=== PATIENT | male | born 1940 | race African-American/Black ===

== ENCOUNTER 2022-05-17 09:52 | Inpatient (IN) | payer OTHER ==
[2022-05-17 10:11] VITALS: BMI 21.4
[2022-05-17] MEDS ORDERED: SODIUM CHLORIDE 0.9% 500 ML INFUS.BAG IV ONE (10:19)
[2022-05-17 11:03] LABS: BASO % 0.6 % (0-2.0); EOS % 0.2 % (0-4.5); HEMATOCRIT 38.7 % (35.4-49); HEMOGLOBIN 12.9 GM/dL (11.7-16.9); LYMPH % 21.3 % (8-40); MCH 30.5 pg (25.7-33.7); MCHC 33.4 g/dl (32.0-35.9); MEAN CELL VOLUME 91.4 fl (80-96); MEAN PLT VOLUME 7.9 fl (7.5-11.1); MONO % 11.5 % (3.8-10.2); NEUT % 66.4 % (42.8-82.8); PLATELET COUNT 313 10^3/uL (134-434); RBC 4.23 M/mm3 (4.00-5.60); RDW 12.6 % (11.9-15.9); WHITE BLOOD COUNT 3.1 K/mm3 (4.0-10.0)
[2022-05-17] MEDS ORDERED: ATORVASTATIN CA 80 MG TABLET (FP) PO ONE (11:10)
[2022-05-17] MEDS ORDERED: ASPIRIN 81 MG CHEWABLE TABLETS PO ONE (11:10)
[2022-05-17] MEDS ORDERED: ATORVASTATIN CA 80 MG TABLET (FP) ONE (11:17)
[2022-05-17] MEDS ORDERED: ASPIRIN 81 MG CHEWABLE TABLETS ONE (11:18)
[2022-05-17 11:19] LABS: CHLORIDE 104 mmol/L (98-107); SODIUM 134 mmol/L (136-145)
[2022-05-17 11:22] LABS: GLUCOSE,RANDOM 66 mg/dL (74-106)
[2022-05-17 11:23] LABS: ALBUMIN 3.2 g/dl (3.4-5.0); BLOOD UREA NITROGEN 19.8 mg/dL (7-18); CALCIUM 9.1 mg/dL (8.5-10.1); CO2 23 mmol/L (21-32); MAGNESIUM 2.2 mg/dL (1.8-2.4)
[2022-05-17 11:26] LABS: CREATININE 1.1 mg/dL (0.55-1.3)
[2022-05-17 11:28] LABS: ALK PHOS 63 U/L (45-117); BILIRUBIN,TOTAL 0.7 mg/dL (0.2-1); TOT PROT 7.7 g/dl (6.4-8.2)
[2022-05-17 11:39] LABS: ANION GAP 6 MMOL/L (8-16); SGOT/AST 175 U/L (15-37); SGPT/ALT 30 U/L (13-61)
[2022-05-17] MEDS ORDERED: ACETAMINOPHEN 325 MG TABLET (FP) PO ONE (11:39)
[2022-05-17] MEDS ORDERED: ACETAMINOPHEN 325 MG TABLET (FP) ONE (11:41)
[2022-05-17] MEDS ORDERED: DEXTROSE 5%-WATER - 1,000 ML IV SCH (12:00)
[2022-05-17] MEDS: DEXTROSE 5%-WATER - 1,000 ML IV SCH ×2 (12:56→20:00)
[2022-05-17 13:12] LABS: BLOOD UREA NITROGEN 17.7 mg/dL (7-18); CALCIUM 8.6 mg/dL (8.5-10.1)
[2022-05-17 13:38] LABS: PH,URINE 5.5 (5.0-8.0); URINE APPEARANCE CLEAR; URINE BILIRUBIN NEGATIVE (NEGATIVE); URINE COLOR YELLOW; URINE GLUCOSE (UA) NEGATIVE (NEGATIVE); URINE KETONE 3+ (NEGATIVE); URINE LEUK ESTERASE NEGATIVE (NEGATIVE); URINE NITRITE NEGATIVE (NEGATIVE); URINE PROTEIN TRACE (NEGATIVE); URINE UROBILINOGEN 0.2 mg/dL (0.2-1.0)
[2022-05-17] MEDS ORDERED: ACETAMINOPHEN 1000 MG/100 ML BAG IVPB PRN (17:00)
[2022-05-17 19:50] LABS: MAGNESIUM 1.8 mg/dL (1.8-2.4)
[2022-05-17 19:53] LABS: PHOSPHOROUS 2.8 mg/dL (2.5-4.9)
[2022-05-17 19:57] LABS: N-TERMINAL BNP 72.7 pg/ml (5-450)
[2022-05-17] MEDS: ATORVASTATIN CA 10 MG TABLET (FP) PO SCH (21:27)
[2022-05-18 08:37] LABS: BASO % 0.7 % (0-2.0); HEMATOCRIT 35.8 % (35.4-49); HEMOGLOBIN 12.4 GM/dL (11.7-16.9); LYMPH % 56.2 % (8-40); MCH 31.2 pg (25.7-33.7); MCHC 34.5 g/dl (32.0-35.9); MEAN CELL VOLUME 90.5 fl (80-96); MEAN PLT VOLUME 7.6 fl (7.5-11.1); MONO % 14.6 % (3.8-10.2); NEUT % 26.5 % (42.8-82.8); PLATELET COUNT 304 10^3/uL (134-434); RBC 3.96 M/mm3 (4.00-5.60)
[2022-05-18 08:55] LABS: ALBUMIN 3.2 g/dl (3.4-5.0); BLOOD UREA NITROGEN 7.6 mg/dL (7-18); CALCIUM 8.3 mg/dL (8.5-10.1)
[2022-05-18 08:59] LABS: CREATININE 0.8 mg/dL (0.55-1.3)
[2022-05-18 09:01] LABS: BILIRUBIN,TOTAL 0.6 mg/dL (0.2-1); TOT PROT 6.6 g/dl (6.4-8.2)
[2022-05-18] MEDS: ENOXAPARIN NA (PORCINE) 40 MG/0.4 ML DISP.SYRIN SQ SCH (09:58)
[2022-05-18] MEDS: BICTEGRAV/EMTRICIT/TENOFOV (BIKTARVY) 50-200-25 MG TABLET PO SCH (18:27)
[2022-05-18] MEDS: DEXTROSE 5%-WATER - 1,000 ML IV SCH ×2 (18:30→20:36)
[2022-05-18] MEDS ORDERED: ACETAMINOPHEN 1000 MG/100 ML BAG IVPB PRN (20:30)
[2022-05-18] MEDS: BENZOCAINE/MENTH/CETYLPYRD CL 1 EACH LOZENGE MM PRN (20:36)
[2022-05-18] MEDS: ATORVASTATIN CA 10 MG TABLET (FP) PO SCH (21:42)
[2022-05-18 22:53] LABS: PH,URINE 7.5 (5.0-8.0); URINE APPEARANCE CLEAR; URINE BILIRUBIN NEGATIVE (NEGATIVE); URINE COLOR YELLOW; URINE GLUCOSE (UA) NEGATIVE (NEGATIVE); URINE KETONE NEGATIVE (NEGATIVE); URINE LEUK ESTERASE NEGATIVE (NEGATIVE); URINE NITRITE NEGATIVE (NEGATIVE); URINE PROTEIN NEGATIVE (NEGATIVE); URINE UROBILINOGEN 0.2 mg/dL (0.2-1.0)
[2022-05-19] MEDS: DEXTROSE 5%-WATER - 1,000 ML IV SCH ×2 (04:57→12:38)
[2022-05-19 08:41] LABS: BASO % 0.6 % (0-2.0); HEMATOCRIT 36.9 % (35.4-49); HEMOGLOBIN 13.1 GM/dL (11.7-16.9); LYMPH % 32.9 % (8-40); MCH 32.1 pg (25.7-33.7); MCHC 35.5 g/dl (32.0-35.9); MEAN CELL VOLUME 90.3 fl (80-96); MEAN PLT VOLUME 7.8 fl (7.5-11.1); MONO % 12.4 % (3.8-10.2); NEUT % 51.1 % (42.8-82.8); PLATELET COUNT 321 10^3/uL (134-434); RBC 4.09 M/mm3 (4.00-5.60); RDW 12.3 % (11.9-15.9)
[2022-05-19 08:58] LABS: BLOOD UREA NITROGEN 4.4 mg/dL (7-18); CALCIUM 8.8 mg/dL (8.5-10.1)
[2022-05-19 08:59] LABS: ALBUMIN 3.2 g/dl (3.4-5.0)
[2022-05-19 09:00] LABS: CREATININE 0.9 mg/dL (0.55-1.3)
[2022-05-19 09:01] LABS: BILIRUBIN,TOTAL 0.7 mg/dL (0.2-1); TOT PROT 6.8 g/dl (6.4-8.2)
[2022-05-19] MEDS: BICTEGRAV/EMTRICIT/TENOFOV (BIKTARVY) 50-200-25 MG TABLET PO SCH (09:35)
[2022-05-19] MEDS: ENOXAPARIN NA (PORCINE) 40 MG/0.4 ML DISP.SYRIN SQ SCH (09:35)
[2022-05-19] MEDS ORDERED: REMDESIVIR 200 MG in SODIUM CHLORIDE 250 ML IVPB ONE (13:00)
[2022-05-19] MEDS: ATORVASTATIN CA 10 MG TABLET (FP) PO SCH (21:09)
[2022-05-19] MEDS ORDERED: ACETAMINOPHEN 1000 MG/100 ML BAG IVPB PRN (21:55)
[2022-05-19] MEDS: BENZOCAINE/MENTH/CETYLPYRD CL 1 EACH LOZENGE MM PRN (22:18)
[2022-05-20] MEDS: ENOXAPARIN NA (PORCINE) 40 MG/0.4 ML DISP.SYRIN SQ SCH (10:31)
[2022-05-20] MEDS: BICTEGRAV/EMTRICIT/TENOFOV (BIKTARVY) 50-200-25 MG TABLET PO SCH (10:32)
[2022-05-20] MEDS: REMDESIVIR 100 MG in SODIUM CHLORIDE 250 ML IVPB SCH (17:24)
[2022-05-20] MEDS: ATORVASTATIN CA 10 MG TABLET (FP) PO SCH (22:01)
[2022-05-20] MEDS: BENZOCAINE/MENTH/CETYLPYRD CL 1 EACH LOZENGE MM PRN (22:02)
[2022-05-21] MEDS: REMDESIVIR 100 MG in SODIUM CHLORIDE 250 ML IVPB SCH (10:25)
[2022-05-21] MEDS: ENOXAPARIN NA (PORCINE) 40 MG/0.4 ML DISP.SYRIN SQ SCH (10:25)
[2022-05-21] MEDS: BICTEGRAV/EMTRICIT/TENOFOV (BIKTARVY) 50-200-25 MG TABLET PO SCH (10:25)
[2022-05-21] MEDS ORDERED: FOLIC ACID INJECTION - 1 MG, THIAMINE HCL 100 MG, MULTIVIT INJECTION ADULT 10 ML in SOD... IVPB ONE (12:26)
[2022-05-21] MEDS: BENZOCAINE/MENTH/CETYLPYRD CL 1 EACH LOZENGE MM PRN (21:59)
[2022-05-21] MEDS: ATORVASTATIN CA 10 MG TABLET (FP) PO SCH (21:59)
[2022-05-22 09:21] LABS: BASO % 0.5 % (0-2.0); EOS % 2.3 % (0-4.5); HEMATOCRIT 36.6 % (35.4-49); HEMOGLOBIN 12.3 GM/dL (11.7-16.9); LYMPH % 22.4 % (8-40); MCH 30.2 pg (25.7-33.7); MCHC 33.6 g/dl (32.0-35.9); MONO % 10.4 % (3.8-10.2); NEUT % 64.4 % (42.8-82.8); PLATELET COUNT 375 10^3/uL (134-434); RBC 4.07 M/mm3 (4.00-5.60); RDW 12.1 % (11.9-15.9); WHITE BLOOD COUNT 4.8 K/mm3 (4.0-10.0)
[2022-05-22 09:46] LABS: ALBUMIN 3.1 g/dl (3.4-5.0); BLOOD UREA NITROGEN 11.3 mg/dL (7-18)
[2022-05-22 09:50] LABS: BILIRUBIN,TOTAL 0.5 mg/dL (0.2-1); TOT PROT 6.3 g/dl (6.4-8.2)
[2022-05-22] MEDS: REMDESIVIR 100 MG in SODIUM CHLORIDE 250 ML IVPB SCH (10:55)
[2022-05-22] MEDS: ENOXAPARIN NA (PORCINE) 40 MG/0.4 ML DISP.SYRIN SQ SCH (10:55)
[2022-05-22] MEDS: BICTEGRAV/EMTRICIT/TENOFOV (BIKTARVY) 50-200-25 MG TABLET PO SCH (10:56)
[2022-05-22] MEDS: DRONABINOL 5 MG CAPSULE PO SCH (16:21)
[2022-05-22] MEDS: BENZOCAINE/MENTH/CETYLPYRD CL 1 EACH LOZENGE MM PRN (17:39)
[2022-05-22] MEDS: ATORVASTATIN CA 10 MG TABLET (FP) PO SCH (20:59)
[2022-05-23] MEDS: ENOXAPARIN NA (PORCINE) 40 MG/0.4 ML DISP.SYRIN SQ SCH (10:22)
[2022-05-23] MEDS: DRONABINOL 5 MG CAPSULE PO SCH (10:23)
[2022-05-23] MEDS: BICTEGRAV/EMTRICIT/TENOFOV (BIKTARVY) 50-200-25 MG TABLET PO SCH (10:23)
[2022-05-23] MEDS: REMDESIVIR 100 MG in SODIUM CHLORIDE 250 ML IVPB SCH (10:24)
[2022-05-23] MEDS: ATORVASTATIN CA 10 MG TABLET (FP) PO SCH (21:02)
[2022-05-23] MEDS: BENZOCAINE/MENTH/CETYLPYRD CL 1 EACH LOZENGE MM PRN (21:03)
[2022-05-24] MEDS: DRONABINOL 5 MG CAPSULE PO SCH (09:46)
[2022-05-24] MEDS: BICTEGRAV/EMTRICIT/TENOFOV (BIKTARVY) 50-200-25 MG TABLET PO SCH (09:47)
[2022-05-24] MEDS: ENOXAPARIN NA (PORCINE) 40 MG/0.4 ML DISP.SYRIN SQ SCH (09:47)
[2022-05-24] MEDS: ATORVASTATIN CA 10 MG TABLET (FP) PO SCH (21:11)
[2022-05-25] MEDS: DRONABINOL 5 MG CAPSULE PO SCH (09:52)
[2022-05-25] MEDS: BICTEGRAV/EMTRICIT/TENOFOV (BIKTARVY) 50-200-25 MG TABLET PO SCH (09:53)
[2022-05-25] MEDS: ENOXAPARIN NA (PORCINE) 40 MG/0.4 ML DISP.SYRIN SQ SCH (10:10)
[2022-05-25] MEDS: ATORVASTATIN CA 10 MG TABLET (FP) PO SCH (21:40)
[2022-05-26] MEDS: DRONABINOL 5 MG CAPSULE PO SCH (09:40)
[2022-05-26] MEDS: BICTEGRAV/EMTRICIT/TENOFOV (BIKTARVY) 50-200-25 MG TABLET PO SCH (09:41)
[2022-05-26] MEDS: ENOXAPARIN NA (PORCINE) 40 MG/0.4 ML DISP.SYRIN SQ SCH (09:41)
[2022-05-26 10:01] VITALS: RESP 18
[2022-05-26] MEDS: ATORVASTATIN CA 10 MG TABLET (FP) PO SCH (21:02)
[2022-05-26] MEDS: BENZOCAINE/MENTH/CETYLPYRD CL 1 EACH LOZENGE MM PRN (21:02)
[2022-05-27] MEDS: DRONABINOL 5 MG CAPSULE PO SCH (11:04)
[2022-05-27] MEDS: ENOXAPARIN NA (PORCINE) 40 MG/0.4 ML DISP.SYRIN SQ SCH (11:04)
[2022-05-27] MEDS: BICTEGRAV/EMTRICIT/TENOFOV (BIKTARVY) 50-200-25 MG TABLET PO SCH (11:05)
[2022-05-27 12:40] VITALS: BP 121/76; PULSE 87; TEMP 97.6
== END 2022-05-27 13:38 | disposition home or self-care (01) | DRG 976 ==
LOC: JER 09:52 → JERBED 12:03 → OBSVTOIN 16:21 → J4S 19:54
PROVIDERS: ADMIT Internal Medicine; ATTEND Internal Medicine
PROC: XW033E5 Introduction of Remdesivir Anti-infective into Peripheral Vein, Percutaneous Approach, New Technology Group 5 (ICD-10-PCS; principal; 2022-05-19)
DX: U07.1 COVID-19 (principal); B20 Human immunodeficiency virus [HIV] disease; J12.82 Pneumonia due to coronavirus disease 2019; I10 Essential (primary) hypertension; E78.5 Hyperlipidemia, unspecified; N40.0 Benign prostatic hyperplasia without lower urinary tract symptoms; R62.7 Adult failure to thrive; Z68.21 Body mass index [BMI] 21.0-21.9, adult; E16.2 Hypoglycemia, unspecified; R53.1 Weakness; R53.81 Other malaise; D70.9 Neutropenia, unspecified
CPT/HCPCS: 0241U-QW; 36415; 70450-TC; 71045-TC-FY; 80048; 80053; 81003; 82962; 83735; 83880; 84100; 84439; 84443; 84484; 85025; 86359; 86360; 87086; 93005; 93010; 93880-TC; 97116-GP; 97161-GP; 99285-25; C9399; G0378

== ENCOUNTER 2022-06-03 13:32 | Emergency (ER) | payer OTHER ==
[2022-06-03] MEDS ORDERED: SODIUM CHLORIDE 0.9% 500 ML INFUS.BAG IV ONE (14:29)
[2022-06-03] MEDS ORDERED: MECLIZINE HCL 25 MG TABLET (FP) PO ONE (14:49)
[2022-06-03] MEDS ORDERED: MECLIZINE HCL 25 MG TABLET (FP) ONE (15:25)
[2022-06-03 15:34] VITALS: BP 132/56; PULSE 65; RESP 20; TEMP 98.2
[2022-06-03 16:26] LABS: BASO % 0.6 % (0-2.0); EOS % 3.7 % (0-4.5); HEMATOCRIT 36.4 % (35.4-49); HEMOGLOBIN 12.2 GM/dL (11.7-16.9); MCH 30.8 pg (25.7-33.7); MCHC 33.6 g/dl (32.0-35.9); MEAN CELL VOLUME 91.5 fl (80-96); MEAN PLT VOLUME 8.4 fl (7.5-11.1); MONO % 10.7 % (3.8-10.2); PLATELET COUNT 400 10^3/uL (134-434); RBC 3.98 M/mm3 (4.00-5.60); RDW 12.8 % (11.9-15.9); WHITE BLOOD COUNT 3.9 K/mm3 (4.0-10.0)
[2022-06-03 16:27] LABS: EPI CELLS 3 /uL (0-25.1); HYALINE CASTS 1 /uL (0-3.1); URINE APPEARANCE CLEAR; URINE BACTERIA 3 /uL (0-1359); URINE BILIRUBIN NEGATIVE (NEGATIVE); URINE COLOR YELLOW; URINE GLUCOSE (UA) NEGATIVE (NEGATIVE); URINE KETONE TRACE (NEGATIVE); URINE LEUK ESTERASE TRACE (NEGATIVE); URINE NITRITE NEGATIVE (NEGATIVE); URINE PROTEIN NEGATIVE (NEGATIVE); URINE RBC 6 /uL (0-23.9); URINE UROBILINOGEN 0.2 mg/dL (0.2-1.0); URINE WBC 35 /uL (0-25.8)
[2022-06-03 16:49] LABS: CALCIUM 9.7 mg/dL (8.5-10.1)
[2022-06-03 16:50] LABS: ALBUMIN 3.7 g/dl (3.4-5.0); BLOOD UREA NITROGEN 16.5 mg/dL (7-18); MAGNESIUM 2.3 mg/dL (1.8-2.4)
[2022-06-03 16:53] LABS: CREATININE 1.3 mg/dL (0.55-1.3)
[2022-06-03 16:54] LABS: BILIRUBIN,TOTAL 0.4 mg/dL (0.2-1); TOT PROT 7.3 g/dl (6.4-8.2)
== END 2022-06-03 17:15 | disposition home or self-care (01) ==
LOC: JER 13:32
DX: R42 Dizziness and giddiness (principal)
CPT/HCPCS: 0241U-QW; 36415; 71045-TC-FY; 80053; 81003; 83735; 84484; 85025; 87086; 87186; 93005; 93010; 99285-25

== ENCOUNTER 2023-06-09 15:19 | Observation (INO) | payer OTHER ==
[2023-06-09] MEDS ORDERED: SODIUM CHLORIDE 0.9% 1000 ML INFUS.BAG IV ONE (17:19)
[2023-06-09 17:58] LABS: BASO % 0.7 % (0-2.0); EOS % 1.3 % (0-4.5); HEMATOCRIT 37.3 % (35.4-49); HEMOGLOBIN 12.5 GM/dL (11.7-16.9); LYMPH % 31.8 % (8-40); MCH 31.1 pg (25.7-33.7); MCHC 33.5 g/dl (32.0-35.9); MEAN CELL VOLUME 92.9 fl (80-96); MEAN PLT VOLUME 8.1 fl (7.5-11.1); MONO % 8.7 % (3.8-10.2); NEUT % 57.5 % (42.8-82.8); PLATELET COUNT 344 10^3/uL (134-434); RBC 4.01 M/mm3 (4.00-5.60); RDW 13.1 % (11.9-15.9); WHITE BLOOD COUNT 4.5 K/mm3 (4.0-10.0)
[2023-06-09 18:11] LABS: POTASSIUM 4.5 mmol/L (3.5-5.1)
[2023-06-09 18:13] LABS: CALCIUM 9.4 mg/dL (8.5-10.1)
[2023-06-09 18:14] LABS: ALBUMIN 3.6 g/dl (3.4-5.0); BLOOD UREA NITROGEN 20.2 mg/dL (7-18)
[2023-06-09 18:17] LABS: CREATININE 1.3 mg/dL (0.55-1.3)
[2023-06-09 18:18] LABS: BILIRUBIN,TOTAL 0.4 mg/dL (0.2-1)
[2023-06-09 18:19] LABS: TOT PROT 7.3 g/dl (6.4-8.2)
[2023-06-09 19:46] LABS: PH,URINE 7.5 (5.0-8.0); URINE APPEARANCE CLEAR; URINE BILIRUBIN NEGATIVE (NEGATIVE); URINE COLOR YELLOW; URINE GLUCOSE (UA) NEGATIVE (NEGATIVE); URINE KETONE NEGATIVE (NEGATIVE); URINE LEUK ESTERASE NEGATIVE (NEGATIVE); URINE NITRITE NEGATIVE (NEGATIVE); URINE PROTEIN NEGATIVE (NEGATIVE)
[2023-06-09] MEDS ORDERED: METOCLOPRAMIDE HCL INJECTION 10 MG/2 ML VIAL IVPUSH ONE (20:54)
[2023-06-09] MEDS ORDERED: ACETAMINOPHEN 1000 MG/100 ML BAG IVPB ONE (20:54)
[2023-06-09] MEDS ORDERED: ACETAMINOPHEN INJECTION 100 ML IVPB ONE (21:24)
[2023-06-09] MEDS ORDERED: METOCLOPRAMIDE HCL INJECTION 10 MG/2 ML VIAL ONE (21:24)
[2023-06-10] MEDS ORDERED: SODIUM CHLORIDE 1,000 ML IV SCH (00:15)
[2023-06-10] MEDS: SODIUM CHLORIDE 1,000 ML IV SCH (03:34)
[2023-06-10] MEDS: BICTEGRAV/EMTRICIT/TENOFOV (BIKTARVY) 50-200-25 MG TABLET PO SCH (08:35)
[2023-06-10 09:31] LABS: HEMATOCRIT 36.8 % (35.4-49); HEMOGLOBIN 12.2 GM/dL (11.7-16.9); MEAN PLT VOLUME 7.9 fl (7.5-11.1); PLATELET COUNT 298 10^3/uL (134-434); RBC 3.92 M/mm3 (4.00-5.60); RDW 12.6 % (11.9-15.9); WHITE BLOOD COUNT 3.6 K/mm3 (4.0-10.0)
[2023-06-10 09:59] LABS: POTASSIUM 5.3 mmol/L (3.5-5.1)
[2023-06-10 10:01] LABS: CALCIUM 8.5 mg/dL (8.5-10.1)
[2023-06-10 10:02] LABS: ALBUMIN 3.1 g/dl (3.4-5.0)
[2023-06-10 10:06] LABS: TOT PROT 6.6 g/dl (6.4-8.2)
[2023-06-10 10:07] LABS: BILIRUBIN,TOTAL 0.6 mg/dL (0.2-1); CREATININE 0.9 mg/dL (0.55-1.3); PHOSPHOROUS 2.5 mg/dL (2.5-4.9)
[2023-06-10] MEDS ORDERED: MECLIZINE HCL 12.5 MG TABLET PO ONE (21:10)
[2023-06-10] MEDS ORDERED: METOCLOPRAMIDE HCL INJECTION 10 MG/2 ML VIAL IVPUSH ONE (21:10)
[2023-06-10] MEDS ORDERED: ATORVASTATIN CA 20 MG TABLET (FP) ONE (21:24)
[2023-06-10] MEDS ORDERED: MECLIZINE HCL 12.5 MG TABLET ONE (21:24)
[2023-06-10] MEDS ORDERED: METOCLOPRAMIDE HCL INJECTION 10 MG/2 ML VIAL ONE (21:24)
[2023-06-10] MEDS ORDERED: ATORVASTATIN CA 10 MG TABLET (FP) PO SCH (22:00)
[2023-06-11] MEDS: SODIUM CHLORIDE 1,000 ML IV SCH (03:01)
[2023-06-11 04:32] VITALS: BMI 21.9
[2023-06-11] MEDS: BICTEGRAV/EMTRICIT/TENOFOV (BIKTARVY) 50-200-25 MG TABLET PO SCH (09:45)
[2023-06-11 10:49] LABS: EPI CELLS 31 /uL (0-25.1); HYALINE CASTS 0 /uL (0-3.1); URINE APPEARANCE CLEAR; URINE BACTERIA 894 /uL (0-1359); URINE BILIRUBIN NEGATIVE (NEGATIVE); URINE COLOR YELLOW; URINE GLUCOSE (UA) NEGATIVE (NEGATIVE); URINE KETONE NEGATIVE (NEGATIVE); URINE LEUK ESTERASE 1+ (NEGATIVE); URINE NITRITE NEGATIVE (NEGATIVE); URINE PROTEIN NEGATIVE (NEGATIVE); URINE RBC 14 /uL (0-23.9); URINE UROBILINOGEN 0.2 mg/dL (0.2-1.0); URINE WBC 27 /uL (0-25.8)
[2023-06-11 14:44] VITALS: BP 129/72; PULSE 78; RESP 17; TEMP 98.5
[2023-06-11] MEDS ORDERED: POLYETHYLENE GLYCOL (HEALTHYLAX) 3350 17 GM PACKET PO ONE (15:15)
[2023-06-11 15:29] LABS: POTASSIUM 3.8 mmol/L (3.5-5.1)
[2023-06-11 15:31] LABS: CALCIUM 9.2 mg/dL (8.5-10.1)
[2023-06-11 15:32] LABS: BLOOD UREA NITROGEN 14.1 mg/dL (7-18)
[2023-06-11 15:35] LABS: CREATININE 1.2 mg/dL (0.55-1.3)
== END 2023-06-11 17:17 | disposition home or self-care (01) ==
LOC: JER 15:19 → JERBED 20:42 → J4W 06-11 04:52
PROVIDERS: ADMIT Internal Medicine; ATTEND Internal Medicine
PROC: 3E033NZ Introduction of Analgesics, Hypnotics, Sedatives into Peripheral Vein, Percutaneous Approach (ICD-10-PCS; principal; 2023-06-09)
PROC: 3E033GC Introduction of Other Therapeutic Substance into Peripheral Vein, Percutaneous Approach (ICD-10-PCS; 2023-06-09)
PROC: 3E0337Z Introduction of Electrolytic and Water Balance Substance into Peripheral Vein, Percutaneous Approach (ICD-10-PCS; 2023-06-09)
DX: J06.9 Acute upper respiratory infection, unspecified (principal); B34.9 Viral infection, unspecified; E86.0 Dehydration; N40.0 Benign prostatic hyperplasia without lower urinary tract symptoms; Z29.89 Encounter for other specified prophylactic measures; R42 Dizziness and giddiness; R51.9 Headache, unspecified; B20 Human immunodeficiency virus [HIV] disease
CPT/HCPCS: 0241U-QW; 36415; 70450-TC; 80048; 80053; 81003; 82962; 83605; 83735; 84100; 84484; 85025; 85027; 87086; 93005; 93010; 93306-TC; 93880-TC; 96361; 96374; 96375; 96376; 97116-GP; 97162-GP; 99285-25; G0378

== ENCOUNTER 2024-02-16 12:35 | Inpatient (IN) | payer OTHER ==
[2024-02-16 14:24] LABS: BASO % 0.8 % (0-2.0); EOS % 0.9 % (0-4.5); HEMATOCRIT 35.7 % (35.4-49); HEMOGLOBIN 12.6 GM/dL (11.7-16.9); LYMPH % 26.6 % (8-40); MCH 32.5 pg (25.7-33.7); MCHC 35.2 g/dl (32.0-35.9); MEAN CELL VOLUME 92.2 fl (80-96); MEAN PLT VOLUME 7.2 fl (7.5-11.1); MONO % 7.7 % (3.8-10.2); PLATELET COUNT 290 10^3/uL (134-434); RBC 3.88 M/mm3 (4.00-5.60); RDW 12.7 % (11.9-15.9); WHITE BLOOD COUNT 3.9 K/mm3 (4.0-10.0)
[2024-02-16 14:27] LABS: INR 1.02 (0.83-1.09); PROTHROMBIN TIME (PATIENT) 11.5 SEC (9.7-13.0)
[2024-02-16 14:30] LABS: ACTIVATED PTT 30.7 SECONDS (25.2-36.5)
[2024-02-16 14:40] LABS: POTASSIUM 3.9 mmol/L (3.5-5.1)
[2024-02-16 14:42] LABS: BLOOD UREA NITROGEN 14.3 mg/dL (7-18); CALCIUM 9.4 mg/dL (8.5-10.1)
[2024-02-16 14:43] LABS: ALBUMIN 3.5 g/dl (3.4-5.0)
[2024-02-16 14:45] LABS: CREATININE 1.2 mg/dL (0.55-1.3)
[2024-02-16 14:47] LABS: BILIRUBIN,TOTAL 0.7 mg/dL (0.2-1); TOT PROT 7.1 g/dl (6.4-8.2)
[2024-02-16] MEDS: ACETAMINOPHEN 1000 MG/100 ML BAG IVPB ONE (15:34)
[2024-02-16] MEDS ORDERED: HEPARIN NA (PORCINE) 5,000 UNITS/ML 1ML VIAL ONE (20:41)
[2024-02-16] MEDS ORDERED: amLODIPine BESYLATE 5 MG TABLET (FP) ONE (20:41)
[2024-02-16] MEDS ORDERED: ATORVASTATIN CA 10 MG TABLET (FP) ONE (20:41)
[2024-02-16] MEDS: SODIUM CHLORIDE 1,000 ML IV SCH (21:15)
[2024-02-16] MEDS: HEPARIN NA (PORCINE) 5,000 UNITS/ML 1ML VIAL SQ SCH (21:24)
[2024-02-16] MEDS: ATORVASTATIN CA 10 MG TABLET (FP) PO SCH (21:25)
[2024-02-16] MEDS: amLODIPine BESYLATE 5 MG TABLET (FP) PO SCH (21:25)
[2024-02-16] MEDS: PANTOPRAZOLE 40 MG TABLET PO SCH (22:16)
[2024-02-16] MEDS: D5-1/2NS+10 MEQ KCL - 10 MEQ/1,000 ML INFUS.BAG IV SCH (22:25)
[2024-02-17 07:04] LABS: HEMATOCRIT 36.7 % (35.4-49); HEMOGLOBIN 12.6 GM/dL (11.7-16.9); MCH 32.1 pg (25.7-33.7); MCHC 34.2 g/dl (32.0-35.9); MEAN CELL VOLUME 93.8 fl (80-96); MEAN PLT VOLUME 7.8 fl (7.5-11.1); PLATELET COUNT 310 10^3/uL (134-434); RBC 3.91 M/mm3 (4.00-5.60); RDW 12.7 % (11.9-15.9); WHITE BLOOD COUNT 4.6 K/mm3 (4.0-10.0)
[2024-02-17 07:12] LABS: POTASSIUM 4.1 mmol/L (3.5-5.1)
[2024-02-17 07:18] LABS: ALBUMIN 3.6 g/dl (3.4-5.0); BLOOD UREA NITROGEN 14.3 mg/dL (7-18); CALCIUM 9.2 mg/dL (8.5-10.1)
[2024-02-17 07:21] LABS: CREATININE 1.2 mg/dL (0.55-1.3); PHOSPHOROUS 2.5 mg/dL (2.5-4.9)
[2024-02-17 07:23] LABS: BILIRUBIN,TOTAL 0.7 mg/dL (0.2-1)
[2024-02-17] MEDS: D5-1/2NS+10 MEQ KCL - 10 MEQ/1,000 ML INFUS.BAG IV SCH (08:54)
[2024-02-17] MEDS: TAMSULOSIN HCL 0.4 MG CAP PO SCH (08:54)
[2024-02-17] MEDS ORDERED: TAMSULOSIN HCL 0.4 MG CAP ONE (09:03)
[2024-02-17] MEDS: BICTEGRAV/EMTRICIT/TENOFOV (BIKTARVY) 50-200-25 MG TABLET PO SCH (10:53)
[2024-02-17 18:21] VITALS: BMI 20.7
[2024-02-17] MEDS: ACETAMINOPHEN 325 MG TABLET (FP) PO PRN (19:12)
[2024-02-18] MEDS: HALOPERIDOL LACTATE 5 MG/ML IM ONE (00:02)
[2024-02-18] MEDS: D5-1/2NS+10 MEQ KCL - 10 MEQ/1,000 ML INFUS.BAG IV SCH (11:37)
[2024-02-18 12:45] LABS: BASO % 0.5 % (0-2.0); EOS % 1.5 % (0-4.5); HEMATOCRIT 39.8 % (35.4-49); HEMOGLOBIN 13.5 GM/dL (11.7-16.9); LYMPH % 23.8 % (8-40); MCH 31.5 pg (25.7-33.7); MEAN CELL VOLUME 92.7 fl (80-96); MONO % 7.5 % (3.8-10.2); NEUT % 66.7 % (42.8-82.8); PLATELET COUNT 323 10^3/uL (134-434); RBC 4.29 M/mm3 (4.00-5.60); RDW 13.4 % (11.9-15.9)
[2024-02-18 13:03] LABS: POTASSIUM 4.1 mmol/L (3.5-5.1)
[2024-02-18 13:05] LABS: POTASSIUM 4.1 mmol/L (3.5-5.1)
[2024-02-18 13:07] LABS: BLOOD UREA NITROGEN 13.4 mg/dL (7-18); CALCIUM 9.7 mg/dL (8.5-10.1)
[2024-02-18 13:10] LABS: CALCIUM 9.4 mg/dL (8.5-10.1)
[2024-02-18 13:11] LABS: ALBUMIN 3.6 g/dl (3.4-5.0); BLOOD UREA NITROGEN 13.1 mg/dL (7-18); CREATININE 1.1 mg/dL (0.55-1.3); MAGNESIUM 2.1 mg/dL (1.8-2.4)
[2024-02-18 13:14] LABS: PHOSPHOROUS 2.8 mg/dL (2.5-4.9)
[2024-02-18 13:15] LABS: BILIRUBIN,TOTAL 0.7 mg/dL (0.2-1); TOT PROT 7.4 g/dl (6.4-8.2)
[2024-02-18] MEDS: FLUDROCORTISONE ACETATE 0.1 MG TABLET (FP) PO SCH (16:25)
[2024-02-18] MEDS: DONEPEZIL HCL 5 MG TABLET (FP) PO SCH (22:14)
[2024-02-19 07:13] LABS: BASO % 0.5 % (0-2.0); EOS % 2.6 % (0-4.5); HEMATOCRIT 36.7 % (35.4-49); HEMOGLOBIN 12.8 GM/dL (11.7-16.9); LYMPH % 27.6 % (8-40); MCH 32.4 pg (25.7-33.7); MCHC 34.8 g/dl (32.0-35.9); MEAN PLT VOLUME 7.4 fl (7.5-11.1); MONO % 9.7 % (3.8-10.2); NEUT % 59.6 % (42.8-82.8); PLATELET COUNT 291 10^3/uL (134-434); RBC 3.95 M/mm3 (4.00-5.60); RDW 12.8 % (11.9-15.9); WHITE BLOOD COUNT 4.4 K/mm3 (4.0-10.0)
[2024-02-19 07:33] LABS: POTASSIUM 3.9 mmol/L (3.5-5.1)
[2024-02-19 07:39] LABS: BLOOD UREA NITROGEN 19.2 mg/dL (7-18)
[2024-02-19 07:40] LABS: ALBUMIN 3.2 g/dl (3.4-5.0); CALCIUM 8.9 mg/dL (8.5-10.1)
[2024-02-19 07:43] LABS: CREATININE 1.2 mg/dL (0.55-1.3)
[2024-02-19 07:45] LABS: BILIRUBIN,TOTAL 0.5 mg/dL (0.2-1); TOT PROT 6.7 g/dl (6.4-8.2)
[2024-02-19] MEDS: FLUDROCORTISONE ACETATE 0.1 MG TABLET (FP) PO SCH (13:30)
[2024-02-20] MEDS: COSYNTROPIN 0.25 MG VIAL IVPUSH ONE (07:42)
[2024-02-20 07:48] LABS: POTASSIUM 4.3 mmol/L (3.5-5.1)
[2024-02-20 07:57] LABS: BASO % 0.6 % (0-2.0); EOS % 2.5 % (0-4.5); HEMATOCRIT 36.6 % (35.4-49); HEMOGLOBIN 12.5 GM/dL (11.7-16.9); LYMPH % 32.8 % (8-40); MCH 32.2 pg (25.7-33.7); MCHC 34.2 g/dl (32.0-35.9); MEAN CELL VOLUME 94.1 fl (80-96); MEAN PLT VOLUME 7.6 fl (7.5-11.1); NEUT % 52.1 % (42.8-82.8); PLATELET COUNT 287 10^3/uL (134-434); RBC 3.88 M/mm3 (4.00-5.60); RDW 12.6 % (11.9-15.9); WHITE BLOOD COUNT 4.2 K/mm3 (4.0-10.0)
[2024-02-20 08:00] LABS: ALBUMIN 3.2 g/dl (3.4-5.0); BLOOD UREA NITROGEN 22.6 mg/dL (7-18); CALCIUM 9.1 mg/dL (8.5-10.1)
[2024-02-20 08:03] LABS: CREATININE 1.3 mg/dL (0.55-1.3)
[2024-02-20 08:05] LABS: BILIRUBIN,TOTAL 0.6 mg/dL (0.2-1); TOT PROT 6.7 g/dl (6.4-8.2)
[2024-02-21 07:59] LABS: BASO % 0.5 % (0-2.0); EOS % 2.1 % (0-4.5); HEMOGLOBIN 13.4 GM/dL (11.7-16.9); LYMPH % 33.1 % (8-40); MCHC 34.4 g/dl (32.0-35.9); MEAN CELL VOLUME 93.1 fl (80-96); MEAN PLT VOLUME 7.9 fl (7.5-11.1); MONO % 9.3 % (3.8-10.2); PLATELET COUNT 291 10^3/uL (134-434); RBC 4.18 M/mm3 (4.00-5.60); RDW 12.8 % (11.9-15.9); WHITE BLOOD COUNT 4.7 K/mm3 (4.0-10.0)
[2024-02-21 08:10] LABS: POTASSIUM 3.9 mmol/L (3.5-5.1)
[2024-02-21 08:24] LABS: ALBUMIN 3.4 g/dl (3.4-5.0); BLOOD UREA NITROGEN 19.7 mg/dL (7-18); CREATININE 1.1 mg/dL (0.55-1.3); TOT PROT 7.1 g/dl (6.4-8.2)
[2024-02-21 08:26] LABS: BILIRUBIN,TOTAL 0.6 mg/dL (0.2-1)
[2024-02-21 08:32] LABS: CALCIUM 9.2 mg/dL (8.5-10.1)
[2024-02-22 07:26] LABS: HEMATOCRIT 36.2 % (35.4-49); HEMOGLOBIN 12.6 GM/dL (11.7-16.9); MCHC 34.9 g/dl (32.0-35.9); MEAN CELL VOLUME 91.7 fl (80-96); MEAN PLT VOLUME 7.6 fl (7.5-11.1); PLATELET COUNT 283 10^3/uL (134-434); RBC 3.95 M/mm3 (4.00-5.60); RDW 13.1 % (11.9-15.9); WHITE BLOOD COUNT 4.3 K/mm3 (4.0-10.0)
[2024-02-22 07:47] LABS: POTASSIUM 3.4 mmol/L (3.5-5.1)
[2024-02-22 07:50] LABS: CALCIUM 9.1 mg/dL (8.5-10.1)
[2024-02-22 07:51] LABS: ALBUMIN 3.2 g/dl (3.4-5.0); BLOOD UREA NITROGEN 15.6 mg/dL (7-18); MAGNESIUM 1.9 mg/dL (1.8-2.4)
[2024-02-22 07:54] LABS: PHOSPHOROUS 2.8 mg/dL (2.5-4.9); TOT PROT 6.6 g/dl (6.4-8.2)
[2024-02-22 07:56] LABS: BILIRUBIN,TOTAL 0.6 mg/dL (0.2-1)
[2024-02-22] MEDS: POTASSIUM CHLORIDE TABS 20 MEQ TABLET.ER (FP) PO ONE (10:40)
[2024-02-22 14:15] VITALS: BP 150/77; PULSE 66; RESP 19; TEMP 97.7
== END 2024-02-22 13:49 | disposition home or self-care (01) | DRG 312 ==
LOC: JER 12:35 → OBSVTOIN 18:26 → INTOOBSV 18:26 → UNDOADMOB 18:26 → JERBED 18:26 → J4W 02-17 09:42 → JERBED 02-17 09:42 → OBSVTOIN 02-20 16:17 → J4W 02-20 16:17 → JERBED 02-20 16:17
PROVIDERS: ADMIT Internal Medicine; ATTEND Internal Medicine
DX: I95.1 Orthostatic hypotension (principal); J98.11 Atelectasis; B20 Human immunodeficiency virus [HIV] disease; I10 Essential (primary) hypertension; I07.1 Rheumatic tricuspid insufficiency; E78.5 Hyperlipidemia, unspecified; I25.85 Chronic coronary microvascular dysfunction; R41.3 Other amnesia; N40.0 Benign prostatic hyperplasia without lower urinary tract symptoms; R63.0 Anorexia; R45.1 Restlessness and agitation; E16.2 Hypoglycemia, unspecified
CPT/HCPCS: 0241U-QW; 36415; 70450-TC; 70551-TC; 71046-TC-FY; 80048; 80053; 82024; 82533; 82607; 82746; 82962; 83735; 84100; 84443; 84484; 85025; 85027; 85610; 85651; 85730; 86593; 86780; 93005; 93010; 93306-TC; 97116-GP; 97162-GP; 99285-25; J0131; J0834; J1644

== ENCOUNTER 2024-03-08 12:14 | Inpatient (IN) | payer OTHER ==
[2024-03-08 14:32] LABS: BASO % 0.8 % (0-2.0); EOS % 0.2 % (0-4.5); HEMATOCRIT 38.1 % (35.4-49); HEMOGLOBIN 13.1 GM/dL (11.7-16.9); LYMPH % 11.7 % (8-40); MCH 31.7 pg (25.7-33.7); MCHC 34.5 g/dl (32.0-35.9); MEAN PLT VOLUME 7.4 fl (7.5-11.1); NEUT % 83.3 % (42.8-82.8); PLATELET COUNT 363 10^3/uL (134-434); RBC 4.13 M/mm3 (4.00-5.60); RDW 12.8 % (11.9-15.9); WHITE BLOOD COUNT 5.8 K/mm3 (4.0-10.0)
[2024-03-08 14:37] LABS: INR 1.01 (0.83-1.09); PROTHROMBIN TIME (PATIENT) 11.6 SEC (9.7-13.0)
[2024-03-08 14:40] LABS: ACTIVATED PTT 29.1 SECONDS (25.2-36.5)
[2024-03-08 14:56] LABS: POTASSIUM 4.2 mmol/L (3.5-5.1)
[2024-03-08 14:58] LABS: CALCIUM 10.2 mg/dL (8.5-10.1)
[2024-03-08 14:59] LABS: ALBUMIN 3.8 g/dl (3.4-5.0); BLOOD UREA NITROGEN 16.9 mg/dL (7-18); MAGNESIUM 2.3 mg/dL (1.8-2.4)
[2024-03-08 15:02] LABS: CREATININE 1.2 mg/dL (0.55-1.3); PHOSPHOROUS 2.6 mg/dL (2.5-4.9)
[2024-03-08 15:03] LABS: BILIRUBIN,TOTAL 0.6 mg/dL (0.2-1); TOT PROT 7.5 g/dl (6.4-8.2)
[2024-03-08] MEDS: LACTATED RINGERS SOLUTION 1000 ML INFUS.BAG IV ONE (15:16)
[2024-03-08 16:36] LABS: PH,URINE 8.5 (5.0-8.0); URINE APPEARANCE CLEAR; URINE BILIRUBIN NEGATIVE (NEGATIVE); URINE COLOR YELLOW; URINE GLUCOSE (UA) NEGATIVE (NEGATIVE); URINE KETONE 2+ (NEGATIVE); URINE LEUK ESTERASE NEGATIVE (NEGATIVE); URINE NITRITE NEGATIVE (NEGATIVE); URINE PROTEIN TRACE (NEGATIVE); URINE UROBILINOGEN 0.2 mg/dL (0.2-1.0)
[2024-03-08] MEDS: LACTATED RINGERS SOLUTION 1,000 ML/1,000 ML INFUS.BAG IV SCH (17:57)
[2024-03-08] MEDS: PANTOPRAZOLE 40 MG TABLET PO SCH (17:57)
[2024-03-08] MEDS: SODIUM CHLORIDE 1,000 ML IV SCH (17:57)
[2024-03-08] MEDS ORDERED: PANTOPRAZOLE 40 MG TABLET PO ONE (17:59)
[2024-03-08] MEDS ORDERED: ATORVASTATIN CA 10 MG TABLET (FP) PO SCH (22:00)
[2024-03-08] MEDS ORDERED: DONEPEZIL HCL 5 MG TABLET (FP) PO SCH (22:00)
[2024-03-08] MEDS ORDERED: ATORVASTATIN CA 10 MG TABLET (FP) ONE (23:00)
[2024-03-08] MEDS: ATORVASTATIN CA 10 MG TABLET (FP) PO SCH (23:09)
[2024-03-09] MEDS ORDERED: MELATONIN 5 MG TABLETS ONE (02:14)
[2024-03-09] MEDS ORDERED: BICTEGRAV/EMTRICIT/TENOFOV (BIKTARVY) 50-200-25 MG TABLET PO SCH (08:00)
[2024-03-09] MEDS ORDERED: TAMSULOSIN HCL 0.4 MG CAP PO SCH (08:30)
[2024-03-09] MEDS: BICTEGRAV/EMTRICIT/TENOFOV (BIKTARVY) 50-200-25 MG TABLET PO SCH (09:12)
[2024-03-09] MEDS: TAMSULOSIN HCL 0.4 MG CAP PO SCH (09:12)
[2024-03-09] MEDS: FLUDROCORTISONE ACETATE 0.1 MG TABLET (FP) PO SCH (09:12)
[2024-03-09] MEDS: ENOXAPARIN NA (PORCINE) 40 MG/0.4 ML DISP.SYRIN SQ SCH (09:12)
[2024-03-09] MEDS: SOLIFENACIN SUCCINATE 5 MG TAB PO SCH (09:13)
[2024-03-09] MEDS ORDERED: SOLIFENACIN SUCCINATE 5 MG TAB PO SCH (10:00)
[2024-03-09] MEDS ORDERED: FLUDROCORTISONE ACETATE 0.1 MG TABLET (FP) PO SCH (10:00)
[2024-03-09] MEDS: SODIUM CHLORIDE 1,000 ML IV SCH (11:57)
[2024-03-09 17:13] VITALS: BMI 20.7
[2024-03-10] MEDS: metoPROLOL SUCCINATE 25 MG TAB.SR.24H (FP) PO SCH (11:01)
[2024-03-10] MEDS: PIPERACILLIN/TAZOB 4.5 GM 4.5 GM in DEXTROSE 5%-WATER 100 ML IVPB SCH ×2 (11:02→13:58)
[2024-03-10] MEDS: PIPERACILLIN/TAZOB 3.375 GM 3.375 GM in DEXTROSE 5%-WATER - 50 ML IVPB SCH (17:51)
[2024-03-11 13:20] LABS: BASO % 0.3 % (0-2.0); EOS % 1.9 % (0-4.5); HEMATOCRIT 36.5 % (35.4-49); HEMOGLOBIN 12.5 GM/dL (11.7-16.9); LYMPH % 23.4 % (8-40); MCH 31.8 pg (25.7-33.7); MCHC 34.3 g/dl (32.0-35.9); MEAN CELL VOLUME 92.9 fl (80-96); MONO % 8.4 % (3.8-10.2); PLATELET COUNT 346 10^3/uL (134-434); RBC 3.93 M/mm3 (4.00-5.60); RDW 12.9 % (11.9-15.9)
[2024-03-11 13:41] LABS: POTASSIUM 3.6 mmol/L (3.5-5.1)
[2024-03-11 13:43] LABS: BLOOD UREA NITROGEN 6.8 mg/dL (7-18); MAGNESIUM 1.9 mg/dL (1.8-2.4)
[2024-03-11 13:46] LABS: CREATININE 1.2 mg/dL (0.55-1.3)
[2024-03-11] MEDS: METOPROLOL TARTRATE 25 MG TABLET (FP) PO SCH (14:39)
[2024-03-11] MEDS: APIXABAN 5 MG TABLET PO SCH (21:43)
[2024-03-12] MEDS: DRONEDARONE HCL 400 MG TAB (FP) PO SCH (00:14)
[2024-03-13 07:50] LABS: POTASSIUM 3.3 mmol/L (3.5-5.1)
[2024-03-13 07:59] LABS: BLOOD UREA NITROGEN 6.8 mg/dL (7-18); CALCIUM 9.1 mg/dL (8.5-10.1)
[2024-03-13 08:00] LABS: MAGNESIUM 1.8 mg/dL (1.8-2.4)
[2024-03-13 08:48] LABS: BASO % 0.5 % (0-2.0); EOS % 3.2 % (0-4.5); HEMATOCRIT 34.1 % (35.4-49); HEMOGLOBIN 11.9 GM/dL (11.7-16.9); LYMPH % 37.8 % (8-40); MCH 31.8 pg (25.7-33.7); MCHC 34.8 g/dl (32.0-35.9); MEAN CELL VOLUME 91.3 fl (80-96); MEAN PLT VOLUME 7.5 fl (7.5-11.1); MONO % 10.5 % (3.8-10.2); PLATELET COUNT 330 10^3/uL (134-434); RBC 3.73 M/mm3 (4.00-5.60); RDW 12.8 % (11.9-15.9); WHITE BLOOD COUNT 3.3 K/mm3 (4.0-10.0)
[2024-03-13] MEDS: POTASSIUM CHLORIDE TABS 20 MEQ TABLET.ER (FP) PO SCH (16:18)
[2024-03-14 07:48] LABS: BASO % 0.6 % (0-2.0); EOS % 3.5 % (0-4.5); HEMATOCRIT 33.9 % (35.4-49); HEMOGLOBIN 11.7 GM/dL (11.7-16.9); LYMPH % 31.4 % (8-40); MCH 31.5 pg (25.7-33.7); MCHC 34.6 g/dl (32.0-35.9); MEAN CELL VOLUME 90.9 fl (80-96); MONO % 10.7 % (3.8-10.2); NEUT % 53.8 % (42.8-82.8); PLATELET COUNT 325 10^3/uL (134-434); RBC 3.73 M/mm3 (4.00-5.60); RDW 12.3 % (11.9-15.9); WHITE BLOOD COUNT 3.5 K/mm3 (4.0-10.0)
[2024-03-14 07:59] LABS: POTASSIUM 3.5 mmol/L (3.5-5.1)
[2024-03-14 08:01] LABS: BLOOD UREA NITROGEN 7.8 mg/dL (7-18); CALCIUM 9.2 mg/dL (8.5-10.1); MAGNESIUM 1.8 mg/dL (1.8-2.4)
[2024-03-14 10:42] VITALS: RESP 20; TEMP 98.1
[2024-03-14] MEDS: METOPROLOL TARTRATE 25 MG TABLET (FP) PO SCH (10:44)
[2024-03-14] MEDS ORDERED: APIXABAN 5 MG TABLET PO SCH (10:51)
[2024-03-14 14:26] VITALS: BP 116/65; PULSE 75
[2024-03-14] MEDS ORDERED: APIXABAN 2.5 MG TABLET PO SCH (22:00)
== END 2024-03-14 14:41 | disposition home or self-care (01) | DRG 312 ==
LOC: JER 12:14 → JERBED 15:56 → J4W 03-09 15:37 → OBSVTOIN 03-11 12:10
PROVIDERS: ADMIT Internal Medicine; ATTEND Internal Medicine
DX: I95.1 Orthostatic hypotension (principal); I47.10 Supraventricular tachycardia, unspecified; I48.91 Unspecified atrial fibrillation; I10 Essential (primary) hypertension; E78.5 Hyperlipidemia, unspecified; Z21 Asymptomatic human immunodeficiency virus [HIV] infection status; R30.0 Dysuria; N40.0 Benign prostatic hyperplasia without lower urinary tract symptoms; I48.0 Paroxysmal atrial fibrillation
CPT/HCPCS: 36415; 70450-TC; 71045-TC-FY; 72125-TC; 80048; 80053; 81003; 82550; 82962; 83735; 84100; 84484; 85025; 85610; 85730; 86850; 86900; 86901; 87086; 87186; 93005; 93010; 97116-GP; 97162-GP; 99285-25; G0378

== ENCOUNTER 2024-04-18 21:12 | Inpatient (IN) | payer OTHER ==
[2024-04-18 22:29] LABS: BASO % 0.3 % (0-2.0); EOS % 0.6 % (0-4.5); HEMATOCRIT 35.2 % (35.4-49); LYMPH % 9.5 % (8-40); MCH 31.5 pg (25.7-33.7); MCHC 34.2 g/dl (32.0-35.9); MEAN CELL VOLUME 92.2 fl (80-96); MEAN PLT VOLUME 7.8 fl (7.5-11.1); MONO % 8.8 % (3.8-10.2); NEUT % 80.8 % (42.8-82.8); PLATELET COUNT 287 10^3/uL (134-434); RBC 3.81 M/mm3 (4.00-5.60); RDW 13.9 % (11.9-15.9); WHITE BLOOD COUNT 5.7 K/mm3 (4.0-10.0)
[2024-04-18 22:50] LABS: BLOOD UREA NITROGEN 9.7 mg/dL (7-18); CALCIUM 9.2 mg/dL (8.5-10.1)
[2024-04-18 22:53] LABS: CREATININE 1.1 mg/dL (0.55-1.3)
[2024-04-18 22:56] LABS: BILIRUBIN,TOTAL 0.6 mg/dL (0.2-1); TOT PROT 6.2 g/dl (6.4-8.2)
[2024-04-18] MEDS: SODIUM CHLORIDE 0.9% 500 ML INFUS.BAG IV ONE (23:12)
[2024-04-18] MEDS ORDERED: MAGNESIUM 1GM/D5W - 1 GM/100 ML IVPB IVPB ONE (23:26)
[2024-04-18] MEDS ORDERED: POTASSIUM CHLORIDE ORAL LIQUID 20 MEQ/15 ML ONE (23:28)
[2024-04-18] MEDS: MAGNESIUM 1GM/D5W - 1 GM/100 ML IVPB IVPB ONE (23:31)
[2024-04-18] MEDS: POTASSIUM CHLORIDE ORAL LIQUID 20 MEQ/15 ML PO ONE (23:31)
[2024-04-19] MEDS ORDERED: ENOXAPARIN NA (PORCINE) 60 MG/0.6 ML DISP.SYRIN SQ ONE (00:19)
[2024-04-19] MEDS ORDERED: KCL 10 MEQ IVPB 20 MEQ/200 ML INFUS.BAG IVPB ONE (00:19)
[2024-04-19] MEDS ORDERED: ASPIRIN 325 MG TABLET ONE (00:19)
[2024-04-19] MEDS ORDERED: METOPROLOL TARTRATE 25 MG TABLET (FP) ONE (00:19)
[2024-04-19] MEDS: ASPIRIN 325 MG TABLET PO ONE (00:26)
[2024-04-19] MEDS: ENOXAPARIN NA (PORCINE) 80 MG/0.8 ML DISP.SYRIN SQ ONE (00:26)
[2024-04-19] MEDS: METOPROLOL TARTRATE 25 MG TABLET (FP) PO ONE (00:26)
[2024-04-19] MEDS: KCL 10 MEQ IVPB 10 MEQ/100 ML INFUS.BAG IVPB SCH (00:29)
[2024-04-19 00:49] LABS: INR 1.05 (0.83-1.09); PROTHROMBIN TIME (PATIENT) 11.9 SEC (9.7-13.0)
[2024-04-19] MEDS ORDERED: PANTOPRAZOLE 40 MG TABLET PO ONE (07:02)
[2024-04-19] MEDS: PANTOPRAZOLE 40 MG TABLET PO SCH (07:04)
[2024-04-19 08:06] LABS: BASO % 0.7 % (0-2.0); HEMATOCRIT 34.6 % (35.4-49); HEMOGLOBIN 11.6 GM/dL (11.7-16.9); LYMPH % 23.5 % (8-40); MCH 31.4 pg (25.7-33.7); MCHC 33.5 g/dl (32.0-35.9); MEAN CELL VOLUME 93.7 fl (80-96); MEAN PLT VOLUME 7.9 fl (7.5-11.1); MONO % 7.2 % (3.8-10.2); NEUT % 67.6 % (42.8-82.8); PLATELET COUNT 278 10^3/uL (134-434); RBC 3.69 M/mm3 (4.00-5.60); RDW 13.5 % (11.9-15.9); WHITE BLOOD COUNT 5.6 K/mm3 (4.0-10.0)
[2024-04-19 08:20] LABS: POTASSIUM 3.3 mmol/L (3.5-5.1)
[2024-04-19 08:21] LABS: CALCIUM 8.6 mg/dL (8.5-10.1)
[2024-04-19 08:22] LABS: ALBUMIN 2.8 g/dl (3.4-5.0); BLOOD UREA NITROGEN 7.3 mg/dL (7-18); MAGNESIUM 2.4 mg/dL (1.8-2.4)
[2024-04-19 08:26] LABS: CREATININE 0.8 mg/dL (0.55-1.3); PHOSPHOROUS 2.1 mg/dL (2.5-4.9)
[2024-04-19 08:27] LABS: BILIRUBIN,TOTAL 0.6 mg/dL (0.2-1); TOT PROT 6.1 g/dl (6.4-8.2)
[2024-04-19] MEDS ORDERED: ENOXAPARIN NA (PORCINE) 80 MG/0.8 ML DISP.SYRIN SQ ONE (09:59)
[2024-04-19] MEDS ORDERED: ENOXAPARIN NA (PORCINE) 60 MG/0.6 ML DISP.SYRIN SQ SCH (10:00)
[2024-04-19] MEDS ORDERED: metoPROLOL SUCCINATE 25 MG TAB.SR.24H (FP) PO SCH (10:00)
[2024-04-19] MEDS: TAMSULOSIN HCL 0.4 MG CAP PO SCH (10:09)
[2024-04-19] MEDS: ASPIRIN 81 MG CHEWABLE TABLETS PO SCH (10:09)
[2024-04-19] MEDS: BICTEGRAV/EMTRICIT/TENOFOV (BIKTARVY) 50-200-25 MG TABLET PO SCH (10:09)
[2024-04-19] MEDS: DRONEDARONE HCL 400 MG TAB (FP) PO SCH (10:09)
[2024-04-19] MEDS: ENOXAPARIN NA (PORCINE) 80 MG/0.8 ML DISP.SYRIN SQ SCH (10:10)
[2024-04-19] MEDS: FLUDROCORTISONE ACETATE 0.1 MG TABLET (FP) PO SCH (10:10)
[2024-04-19] MEDS: SOLIFENACIN SUCCINATE 5 MG TAB PO SCH (10:10)
[2024-04-19] MEDS: METOPROLOL TARTRATE 25 MG TABLET (FP) PO SCH (10:10)
[2024-04-19 17:52] LABS: N-TERMINAL BNP 739.7 pg/ml (5-450)
[2024-04-19] MEDS: LISINOPRIL 5 MG TABLET PO SCH (18:30)
[2024-04-19 18:56] VITALS: BMI 20.5
[2024-04-19] MEDS: ATORVASTATIN CA 80 MG TABLET (FP) PO SCH (21:28)
[2024-04-19] MEDS ORDERED: ATORVASTATIN CA 40 MG TABLET (FP) PO SCH (22:00)
[2024-04-19] MEDS ORDERED: ATORVASTATIN CA 10 MG TABLET (FP) PO SCH (22:00)
[2024-04-20 11:18] LABS: HEMATOCRIT 37.2 % (35.4-49); HEMOGLOBIN 12.7 GM/dL (11.7-16.9); MCH 31.7 pg (25.7-33.7); MCHC 34.1 g/dl (32.0-35.9); MEAN CELL VOLUME 92.8 fl (80-96); MEAN PLT VOLUME 8.4 fl (7.5-11.1); PLATELET COUNT 309 10^3/uL (134-434); RBC 4.01 M/mm3 (4.00-5.60); RDW 13.8 % (11.9-15.9); WHITE BLOOD COUNT 4.5 K/mm3 (4.0-10.0)
[2024-04-20 11:39] LABS: POTASSIUM 3.5 mmol/L (3.5-5.1)
[2024-04-20 11:44] LABS: BLOOD UREA NITROGEN 10.1 mg/dL (7-18); CALCIUM 9.6 mg/dL (8.5-10.1); MAGNESIUM 2.1 mg/dL (1.8-2.4)
[2024-04-20 11:47] LABS: CREATININE 0.9 mg/dL (0.55-1.3)
[2024-04-20 11:48] LABS: PHOSPHOROUS 1.9 mg/dL (2.5-4.9)
[2024-04-20 13:00] LABS: HIV INTERPRETATION PRESUMPTIVE POSITIVE (NEGATIVE)
[2024-04-20 14:28] VITALS: RESP 16
[2024-04-20 17:20] VITALS: BP 140/78; PULSE 66; TEMP 97.3
== END 2024-04-20 16:00 | disposition home or self-care (01) | DRG 281 ==
LOC: JER 21:12 → JERBED 04-19 00:55 → J4S 04-19 14:35
PROVIDERS: ADMIT Student in an Organized Health Care Education/Training Program; ATTEND Internal Medicine
DX: I21.A1 Myocardial infarction type 2 (principal); I47.10 Supraventricular tachycardia, unspecified; E87.6 Hypokalemia; I10 Essential (primary) hypertension; N40.0 Benign prostatic hyperplasia without lower urinary tract symptoms; I48.0 Paroxysmal atrial fibrillation; I95.1 Orthostatic hypotension; N32.81 Overactive bladder; R41.82 Altered mental status, unspecified; E78.5 Hyperlipidemia, unspecified; Z21 Asymptomatic human immunodeficiency virus [HIV] infection status
CPT/HCPCS: 0241U-QW; 36415; 71045-TC-FY; 80048; 80053; 80061; 82550; 83735; 83880; 84100; 84439; 84443; 84484; 85025; 85027; 85610; 86803; 86850; 86900; 86901; 87389; 93005; 93010; 93306-TC; 97116-GP; 97161-GP; 99285-25

== ENCOUNTER 2024-09-06 13:50 | Observation (INO) | payer OTHER ==
[2024-09-06 17:00] LABS: BASO % 0.8 % (0-2.0); EOS % 0.8 % (0-4.5); HEMATOCRIT 37.5 % (35.4-49); HEMOGLOBIN 12.6 GM/dL (11.7-16.9); LYMPH % 29.6 % (8-40); MCH 31.3 pg (25.7-33.7); MCHC 33.5 g/dl (32.0-35.9); MEAN CELL VOLUME 93.3 fl (80-96); MEAN PLT VOLUME 8.5 fl (7.5-11.1); MONO % 7.7 % (3.8-10.2); NEUT % 61.1 % (42.8-82.8); PLATELET COUNT 332 10^3/uL (134-434); RBC 4.02 M/mm3 (4.00-5.60); RDW 13.6 % (11.9-15.9)
[2024-09-06 17:05] LABS: INR 1.37 (0.83-1.09); PROTHROMBIN TIME (PATIENT) 15.1 SEC (9.7-13.0)
[2024-09-06 17:07] LABS: ACTIVATED PTT 31.7 SECONDS (25.2-36.5)
[2024-09-06 17:17] LABS: POTASSIUM 3.1 mmol/L (3.5-5.1)
[2024-09-06 17:19] LABS: ALBUMIN 4.1 g/dl (3.4-5.0); BLOOD UREA NITROGEN 11.4 mg/dL (7-18)
[2024-09-06 17:22] LABS: CREATININE 1.1 mg/dL (0.55-1.3)
[2024-09-06 17:24] LABS: BILIRUBIN,TOTAL 0.8 mg/dL (0.2-1); TOT PROT 8.3 g/dl (6.4-8.2)
[2024-09-06] MEDS: SODIUM CHLORIDE 0.9% 500 ML INFUS.BAG IV ONE (19:21)
[2024-09-06] MEDS ORDERED: ACETAMINOPHEN 325 MG TABLET (FP) ONE (19:30)
[2024-09-06] MEDS ORDERED: amLODIPine BESYLATE 5 MG TABLET (FP) ONE (19:30)
[2024-09-06] MEDS: ACETAMINOPHEN 500 MG TABLET (FP) PO ONE (19:43)
[2024-09-06] MEDS: amLODIPine BESYLATE 5 MG TABLET (FP) PO ONE (19:43)
[2024-09-06] MEDS: APIXABAN 2.5 MG TABLET PO SCH (23:24)
[2024-09-06] MEDS: DRONEDARONE HCL 400 MG TAB (FP) PO SCH (23:24)
[2024-09-06 23:49] LABS: URINE APPEARANCE CLEAR; URINE BILIRUBIN NEGATIVE (NEGATIVE); URINE COLOR YELLOW; URINE GLUCOSE (UA) NEGATIVE (NEGATIVE); URINE KETONE TRACE (NEGATIVE)
[2024-09-06 23:50] LABS: PH,URINE >= 9.0 (5.0-8.0); URINE LEUK ESTERASE NEGATIVE (NEGATIVE); URINE NITRITE NEGATIVE (NEGATIVE); URINE PROTEIN TRACE (NEGATIVE); URINE UROBILINOGEN 0.2 mg/dL (0.2-1.0)
[2024-09-07] MEDS ORDERED: POTASSIUM CHLORIDE ORAL LIQUID 20 MEQ/15 ML ONE (00:19)
[2024-09-07] MEDS: POTASSIUM CHLORIDE ORAL LIQUID 20 MEQ/15 ML PO ONE ×2 (00:29→09:35)
[2024-09-07] MEDS ORDERED: APIXABAN 2.5 MG TABLET PO ONE (01:09)
[2024-09-07] MEDS: APIXABAN 2.5 MG TABLET PO ONE (03:23)
[2024-09-07] MEDS: ACETAMINOPHEN 325 MG TABLET (FP) PO PRN (03:23)
[2024-09-07] MEDS ORDERED: ACETAMINOPHEN 325 MG TABLET (FP) PO PRN (05:46)
[2024-09-07] MEDS: METOPROLOL TARTRATE 5 MG/5 ML VIAL IVPUSH ONE (06:21)
[2024-09-07 07:56] LABS: POTASSIUM 3.6 mmol/L (3.5-5.1)
[2024-09-07 07:58] LABS: ALBUMIN 3.6 g/dl (3.4-5.0); BLOOD UREA NITROGEN 13.8 mg/dL (7-18); CALCIUM 9.8 mg/dL (8.5-10.1)
[2024-09-07 08:01] LABS: CREATININE 1.1 mg/dL (0.55-1.3)
[2024-09-07 08:02] LABS: PHOSPHOROUS 2.4 mg/dL (2.5-4.9)
[2024-09-07 08:03] LABS: BILIRUBIN,TOTAL 0.8 mg/dL (0.2-1)
[2024-09-07] MEDS: PANTOPRAZOLE 20 MG TABLET PO SCH (09:35)
[2024-09-07] MEDS: FLUDROCORTISONE ACETATE 0.1 MG TABLET (FP) PO SCH (09:36)
[2024-09-07] MEDS: APIXABAN 5 MG TABLET PO SCH (09:36)
[2024-09-07] MEDS ORDERED: TAMSULOSIN HCL 0.4 MG CAP PO SCH (10:00)
[2024-09-07] MEDS: BICTEGRAV/EMTRICIT/TENOFOV (BIKTARVY) 50-200-25 MG TABLET PO SCH (10:28)
[2024-09-07] MEDS: METOPROLOL TARTRATE 25 MG TABLET (FP) PO SCH (10:28)
[2024-09-07] MEDS: SOLIFENACIN SUCCINATE 5 MG TAB PO SCH (10:28)
[2024-09-07] MEDS: ATORVASTATIN CA 80 MG TABLET (FP) PO SCH (21:28)
[2024-09-07] MEDS ORDERED: ATORVASTATIN CA 10 MG TABLET (FP) PO SCH (22:00)
[2024-09-08] MEDS ORDERED: AMIODARONE HCL INJECTION 150 MG in DEXTROSE 5%-WATER - 100 ML IVPB ONE (00:49)
[2024-09-08] MEDS ORDERED: AMIODARONE HCL 100 MG TABLET PO ONE (00:50)
[2024-09-08] MEDS ORDERED: AMIODARONE HCL 150 MG/3 ML VIAL ONE (00:59)
[2024-09-08] MEDS ORDERED: AMIODARONE IN DEXTROSE,ISO-OSM 360 MG/200 ML BAG IV SCH ×2 (01:00→07:10)
[2024-09-08] MEDS ORDERED: AMIODARONE IN DEXTROSE,ISO-OSM 150 MG/100 ML BAG IVPB ONE (01:00)
[2024-09-08] MEDS: dilTIAZem HCL 25 MG/5 ML - 5 ML VIAL IVPUSH ONE (01:18)
[2024-09-08 07:36] LABS: BASO % 0.3 % (0-2.0); EOS % 0.3 % (0-4.5); HEMATOCRIT 36.2 % (35.4-49); HEMOGLOBIN 12.1 GM/dL (11.7-16.9); LYMPH % 21.6 % (8-40); MCH 31.3 pg (25.7-33.7); MCHC 33.4 g/dl (32.0-35.9); MEAN CELL VOLUME 93.6 fl (80-96); MEAN PLT VOLUME 8.4 fl (7.5-11.1); MONO % 8.2 % (3.8-10.2); NEUT % 69.6 % (42.8-82.8); PLATELET COUNT 315 10^3/uL (134-434); RBC 3.87 M/mm3 (4.00-5.60); RDW 13.9 % (11.9-15.9); WHITE BLOOD COUNT 4.7 K/mm3 (4.0-10.0)
[2024-09-08 07:56] LABS: POTASSIUM 3.7 mmol/L (3.5-5.1)
[2024-09-08 08:14] LABS: BLOOD UREA NITROGEN 19.6 mg/dL (7-18); CALCIUM 9.7 mg/dL (8.5-10.1)
[2024-09-08 08:18] LABS: CREATININE 1.1 mg/dL (0.55-1.3)
[2024-09-08] MEDS: POTASSIUM CHLORIDE ORAL LIQUID 20 MEQ/15 ML PO ONE (09:47)
[2024-09-08 09:52] VITALS: RESP 18
[2024-09-08 10:00] VITALS: BMI 19.5
[2024-09-08] MEDS ORDERED: LISINOPRIL 5 MG TABLET PO SCH (10:00)
[2024-09-08] MEDS: AMIODARONE IN DEXTROSE,ISO-OSM 360 MG/200 ML BAG IV SCH (11:49)
[2024-09-08 19:43] VITALS: BP 117/87; PULSE 63; TEMP 97.2
== END 2024-09-08 20:00 | disposition short-term general hospital (02) ==
LOC: JER 13:50 → JERBED 19:45 → INTOOBSV 19:45 → J4W 09-07 01:03
PROVIDERS: ADMIT Internal Medicine; ATTEND Internal Medicine
PROC: 3E033GC Introduction of Other Therapeutic Substance into Peripheral Vein, Percutaneous Approach (ICD-10-PCS; principal; 2024-09-06)
DX: I25.10 Atherosclerotic heart disease of native coronary artery without angina pectoris (principal); I95.1 Orthostatic hypotension; B20 Human immunodeficiency virus [HIV] disease; I25.2 Old myocardial infarction; I48.91 Unspecified atrial fibrillation; Z79.01 Long term (current) use of anticoagulants; Z87.891 Personal history of nicotine dependence
CPT/HCPCS: 36415; 70450-TC; 70551-TC; 71045-TC-FY; 80048; 80053; 81003; 82607; 82962; 83735; 84100; 84484; 85025; 85610; 85730; 93005; 93010; 96374; 96375; 99291; G0378

== ENCOUNTER 2024-09-17 13:51 | Inpatient (IN) | payer OTHER ==
[2024-09-17] MEDS ORDERED: PANTOPRAZOLE SODIUM 40 MG VIAL ONE (14:31)
[2024-09-17 15:19] LABS: BASO % 0.3 % (0-2.0); EOS % 0.5 % (0-4.5); HEMATOCRIT 29.1 % (35.4-49); HEMOGLOBIN 9.9 GM/dL (11.7-16.9); LYMPH % 19.5 % (8-40); MCH 31.4 pg (25.7-33.7); MEAN CELL VOLUME 92.5 fl (80-96); MEAN PLT VOLUME 7.5 fl (7.5-11.1); MONO % 16.5 % (3.8-10.2); NEUT % 63.2 % (42.8-82.8); PLATELET COUNT 292 10^3/uL (134-434); RBC 3.15 M/mm3 (4.00-5.60); RDW 13.5 % (11.9-15.9); WHITE BLOOD COUNT 5.1 K/mm3 (4.0-10.0)
[2024-09-17 15:27] LABS: INR 1.8 (0.83-1.09); PROTHROMBIN TIME (PATIENT) 19.8 SEC (9.7-13.0)
[2024-09-17 15:30] LABS: ACTIVATED PTT 32.5 SECONDS (25.2-36.5)
[2024-09-17 15:38] LABS: PH,URINE 5.5 (5.0-8.0); URINE APPEARANCE CLOUDY; URINE BILIRUBIN NEGATIVE (NEGATIVE); URINE COLOR YELLOW; URINE GLUCOSE (UA) NEGATIVE (NEGATIVE); URINE KETONE TRACE (NEGATIVE); URINE LEUK ESTERASE NEGATIVE (NEGATIVE); URINE NITRITE NEGATIVE (NEGATIVE); URINE PROTEIN TRACE (NEGATIVE); URINE UROBILINOGEN 0.2 mg/dL (0.2-1.0)
[2024-09-17 15:46] LABS: CHLORIDE 107 mmol/L (98-107); POTASSIUM 3.8 mmol/L (3.5-5.1); SODIUM 140 mmol/L (136-145)
[2024-09-17 15:48] LABS: CALCIUM 8.7 mg/dL (8.5-10.1); MAGNESIUM 1.7 mg/dL (1.8-2.4)
[2024-09-17 15:49] LABS: ANION GAP 5 mmol/L (4-13); CO2 27 mmol/L (21-32); GLUCOSE,RANDOM 81 mg/dL (74-106)
[2024-09-17 15:51] LABS: CREATININE 1.1 mg/dL (0.55-1.3); SGOT/AST 18 U/L (15-37); SGPT/ALT 20 U/L (13-61)
[2024-09-17 15:52] LABS: PHOSPHOROUS 2.3 mg/dL (2.5-4.9)
[2024-09-17 15:53] LABS: TOT PROT 6.1 g/dl (6.4-8.2)
[2024-09-17 15:54] LABS: BILIRUBIN,TOTAL 0.6 mg/dL (0.2-1)
[2024-09-17 15:55] LABS: ALBUMIN 2.9 g/dl (3.4-5.0)
[2024-09-17] MEDS ORDERED: MAGNESIUM SULFATE IN WATER 2 GM/50 ML IVPB IVPB ONE (15:59)
[2024-09-17] MEDS: MAGNESIUM SULFATE IN WATER 2 GM/50 ML IVPB IVPB ONE (16:20)
[2024-09-17] MEDS: LACTATED RINGERS SOLUTION 1000 ML INFUS.BAG IV ONE (16:20)
[2024-09-17] MEDS: PANTOPRAZOLE SODIUM 40 MG VIAL IVPUSH ONE (16:20)
[2024-09-17 16:22] LABS: ALK PHOS 63 U/L (45-117)
[2024-09-17 19:02] LABS: BASO % 0.2 % (0-2.0); EOS % 0.5 % (0-4.5); HEMATOCRIT 29.9 % (35.4-49); LYMPH % 21.1 % (8-40); MCHC 33.5 g/dl (32.0-35.9); MEAN CELL VOLUME 92.3 fl (80-96); MEAN PLT VOLUME 7.3 fl (7.5-11.1); NEUT % 65.2 % (42.8-82.8); PLATELET COUNT 306 10^3/uL (134-434); RBC 3.24 M/mm3 (4.00-5.60); RDW 13.2 % (11.9-15.9); WHITE BLOOD COUNT 4.8 K/mm3 (4.0-10.0)
[2024-09-17 20:33] LABS: IRON SERUM 24 ug/dL (50-175); TOTAL IRON BINDING CAPACITY 255 ug/dL (250-450)
[2024-09-17] MEDS: PANTOPRAZOLE 40 MG TABLET PO SCH (21:20)
[2024-09-17] MEDS ORDERED: APIXABAN 5 MG TABLET ONE (21:34)
[2024-09-17] MEDS ORDERED: ATORVASTATIN CA 10 MG TABLET (FP) ONE (21:34)
[2024-09-17] MEDS ORDERED: ACETAMINOPHEN INJECTION 100 ML ONE (21:34)
[2024-09-17] MEDS ORDERED: PANTOPRAZOLE 40 MG TABLET PO ONE (21:34)
[2024-09-17] MEDS: APIXABAN 5 MG TABLET PO SCH (21:43)
[2024-09-17] MEDS ORDERED: METOPROLOL TARTRATE 5 MG/5 ML VIAL ONE (21:46)
[2024-09-17] MEDS ORDERED: dilTIAZem HCL 125 MG/25 ML - 25 ML VIAL ONE (21:55)
[2024-09-17] MEDS ORDERED: METOPROLOL TARTRATE 25 MG TABLET (FP) ONE (22:05)
[2024-09-17] MEDS: METOPROLOL TARTRATE 25 MG TABLET (FP) PO ONE (22:08)
[2024-09-17] MEDS: ACETAMINOPHEN 1000 MG/100 ML BAG IVPB ONE (22:09)
[2024-09-17] MEDS: dilTIAZem HCL 50 MG/10 ML - 10 ML VIAL IVPUSH ONE ×2 (22:12→22:13)
[2024-09-17] MEDS: ATORVASTATIN CA 10 MG TABLET (FP) PO SCH (22:21)
[2024-09-17] MEDS: SODIUM CHLORIDE 0.9% 500 ML INFUS.BAG IV ONE (22:55)
[2024-09-17] MEDS ORDERED: AMIODARONE HCL 150 MG/3 ML VIAL ONE (23:48)
[2024-09-18] MEDS ORDERED: AMIODARONE IN DEXTROSE,ISO-OSM 150 MG/100 ML BAG ONE
[2024-09-18] MEDS: DRONEDARONE HCL 400 MG TAB (FP) PO SCH (00:42)
[2024-09-18] MEDS: D5-1/2NS+20 MEQ KCL - 20 MEQ/1,000 ML INFUS.BAG IV SCH ×3 (00:44→14:31)
[2024-09-18] MEDS: AMIODARONE HCL INJECTION 150 MG in DEXTROSE 5%-WATER - 100 ML IVPB ONE ×4 (00:44→02:05)
[2024-09-18] MEDS: AMIODARONE IN DEXTROSE,ISO-OSM 150 MG/100 ML BAG IVPB ONE (02:05)
[2024-09-18] MEDS: AMIODARONE IN DEXTROSE,ISO-OSM 360 MG/200 ML BAG IV SCH (02:06)
[2024-09-18] MEDS ORDERED: AMIODARONE IN DEXTROSE,ISO-OSM 360 MG/200 ML BAG IV SCH (06:30)
[2024-09-18 07:28] LABS: BASO % 0.3 % (0-2.0); EOS % 0.9 % (0-4.5); HEMATOCRIT 26.6 % (35.4-49); LYMPH % 19.7 % (8-40); MCH 31.3 pg (25.7-33.7); MCHC 33.7 g/dl (32.0-35.9); MEAN CELL VOLUME 92.9 fl (80-96); MEAN PLT VOLUME 8.1 fl (7.5-11.1); MONO % 12.1 % (3.8-10.2); PLATELET COUNT 295 10^3/uL (134-434); RBC 2.86 M/mm3 (4.00-5.60); WHITE BLOOD COUNT 3.7 K/mm3 (4.0-10.0)
[2024-09-18 07:30] LABS: POTASSIUM 3.9 mmol/L (3.5-5.1)
[2024-09-18 07:32] LABS: CALCIUM 8.2 mg/dL (8.5-10.1)
[2024-09-18 07:33] LABS: BLOOD UREA NITROGEN 9.8 mg/dL (7-18)
[2024-09-18] MEDS: TAMSULOSIN HCL 0.4 MG CAP PO SCH (08:44)
[2024-09-18] MEDS: IRON SUCROSE INJECTION 300 MG in SODIUM CHLORIDE 235 ML IVPB ONE ×3 (08:44→09:01)
[2024-09-18] MEDS: SOLIFENACIN SUCCINATE 5 MG TAB PO SCH (10:29)
[2024-09-18] MEDS: METOPROLOL TARTRATE 25 MG TABLET (FP) PO SCH (10:29)
[2024-09-18] MEDS: FLUDROCORTISONE ACETATE 0.1 MG TABLET (FP) PO SCH (10:29)
[2024-09-18] MEDS ORDERED: IRON SUCROSE INJECTION 300 MG in SODIUM CHLORIDE 235 ML IVPB ONE (11:00)
[2024-09-18] MEDS: BICTEGRAV/EMTRICIT/TENOFOV (BIKTARVY) 50-200-25 MG TABLET PO SCH (11:22)
[2024-09-18 18:44] VITALS: BMI 21.2
[2024-09-18] MEDS: LORazepam 2 MG/ML SDV VIAL IVPUSH ONE (21:20)
[2024-09-19] MEDS: dilTIAZem HCL 25 MG/5 ML - 5 ML VIAL IVPUSH ONE (02:14)
[2024-09-19] MEDS ORDERED: AMIODARONE IN DEXTROSE,ISO-OSM 150 MG/100 ML BAG IVPB ONE (03:30)
[2024-09-19] MEDS ORDERED: METOPROLOL TARTRATE 5 MG/5 ML VIAL IVPUSH PRN (03:50)
[2024-09-19] MEDS: METOPROLOL TARTRATE 50 MG TABLET (FP) PO SCH (03:58)
[2024-09-19] MEDS: LORazepam 2 MG/ML SDV VIAL IVPUSH PRN (05:03)
[2024-09-19] MEDS: EMPAGLIFLOZIN (JARDIANCE) 10 MG TABLET PO SCH (06:30)
[2024-09-19 07:21] LABS: BASO % 0.2 % (0-2.0); EOS % 0.7 % (0-4.5); HEMATOCRIT 28.4 % (35.4-49); HEMOGLOBIN 9.7 GM/dL (11.7-16.9); LYMPH % 16.2 % (8-40); MCH 31.5 pg (25.7-33.7); MCHC 34.2 g/dl (32.0-35.9); MEAN CELL VOLUME 92.2 fl (80-96); MONO % 12.1 % (3.8-10.2); NEUT % 70.8 % (42.8-82.8); PLATELET COUNT 344 10^3/uL (134-434); RBC 3.08 M/mm3 (4.00-5.60); RDW 13.4 % (11.9-15.9); WHITE BLOOD COUNT 4.7 K/mm3 (4.0-10.0)
[2024-09-19 07:41] LABS: POTASSIUM 3.2 mmol/L (3.5-5.1)
[2024-09-19 07:43] LABS: CALCIUM 8.5 mg/dL (8.5-10.1)
[2024-09-19 07:46] LABS: CREATININE 0.9 mg/dL (0.55-1.3)
[2024-09-19 07:47] LABS: CHOLESTEROL 128 mg/dL (50-200); PHOSPHOROUS 2.2 mg/dL (2.5-4.9)
[2024-09-19 07:48] LABS: BILIRUBIN,TOTAL 0.8 mg/dL (0.2-1); LDL CHOLESTEROL (ONLY SJRH) 60 mg/dL (5-100); TOT PROT 6.2 g/dl (6.4-8.2)
[2024-09-19 07:50] LABS: HDL CHOLESTEROL 64 mg/dL (40-60); N-TERMINAL BNP 917.4 pg/ml (5-450)
[2024-09-19] MEDS: POTASSIUM CHLORIDE ORAL LIQUID 20 MEQ/15 ML PO ONE (08:12)
[2024-09-19] MEDS: IRON SUCROSE INJECTION 300 MG in SODIUM CHLORIDE 235 ML IVPB ONE (11:20)
[2024-09-19] MEDS: DRONEDARONE HCL 400 MG TAB (FP) PO SCH (12:09)
[2024-09-19] MEDS: D5-1/2NS+20 MEQ KCL - 20 MEQ/1,000 ML INFUS.BAG IV SCH (17:43)
[2024-09-19] MEDS: ACETAMINOPHEN 325 MG TABLET (FP) PO PRN (22:02)
[2024-09-20 07:09] LABS: BASO % 0.3 % (0-2.0); EOS % 1.7 % (0-4.5); HEMATOCRIT 28.6 % (35.4-49); HEMOGLOBIN 9.7 GM/dL (11.7-16.9); LYMPH % 20.5 % (8-40); MCH 31.5 pg (25.7-33.7); MEAN CELL VOLUME 92.6 fl (80-96); MEAN PLT VOLUME 7.7 fl (7.5-11.1); NEUT % 61.5 % (42.8-82.8); PLATELET COUNT 362 10^3/uL (134-434); RBC 3.09 M/mm3 (4.00-5.60); RDW 13.3 % (11.9-15.9)
[2024-09-20 07:26] LABS: POTASSIUM 3.9 mmol/L (3.5-5.1)
[2024-09-20 07:27] LABS: CALCIUM 8.9 mg/dL (8.5-10.1)
[2024-09-20 07:28] LABS: BLOOD UREA NITROGEN 4.9 mg/dL (7-18)
[2024-09-20 07:31] LABS: CREATININE 1.1 mg/dL (0.55-1.3)
[2024-09-20] MEDS: IRON POLYSACCHARIDES 150 MG CAPSULE PO SCH (10:30)
[2024-09-21 07:08] LABS: BASO % 0.7 % (0-2.0); EOS % 2.7 % (0-4.5); HEMATOCRIT 27.2 % (35.4-49); HEMOGLOBIN 9.3 GM/dL (11.7-16.9); LYMPH % 35.5 % (8-40); MCH 31.6 pg (25.7-33.7); MCHC 34.2 g/dl (32.0-35.9); MEAN CELL VOLUME 92.6 fl (80-96); MEAN PLT VOLUME 7.9 fl (7.5-11.1); MONO % 15.5 % (3.8-10.2); NEUT % 45.6 % (42.8-82.8); PLATELET COUNT 345 10^3/uL (134-434); RBC 2.94 M/mm3 (4.00-5.60); WHITE BLOOD COUNT 3.2 K/mm3 (4.0-10.0)
[2024-09-21 07:23] LABS: POTASSIUM 3.6 mmol/L (3.5-5.1)
[2024-09-21 07:27] LABS: BLOOD UREA NITROGEN 5.9 mg/dL (7-18); CALCIUM 8.6 mg/dL (8.5-10.1)
[2024-09-22 04:01] VITALS: RESP 18
[2024-09-22 08:04] LABS: BASO % 0.5 % (0-2.0); EOS % 1.6 % (0-4.5); HEMATOCRIT 28.2 % (35.4-49); HEMOGLOBIN 9.6 GM/dL (11.7-16.9); MCH 31.5 pg (25.7-33.7); MCHC 34.1 g/dl (32.0-35.9); MEAN CELL VOLUME 92.4 fl (80-96); MEAN PLT VOLUME 7.7 fl (7.5-11.1); MONO % 11.5 % (3.8-10.2); NEUT % 55.4 % (42.8-82.8); PLATELET COUNT 361 10^3/uL (134-434); RBC 3.05 M/mm3 (4.00-5.60)
[2024-09-22 08:10] LABS: POTASSIUM 3.5 mmol/L (3.5-5.1)
[2024-09-22 08:14] LABS: CALCIUM 8.7 mg/dL (8.5-10.1)
[2024-09-22 08:15] LABS: BLOOD UREA NITROGEN 6.8 mg/dL (7-18)
[2024-09-22 08:18] LABS: CREATININE 1.1 mg/dL (0.55-1.3)
[2024-09-22] MEDS: POTASSIUM CHLORIDE TABS 20 MEQ TABLET.ER (FP) PO ONE (09:53)
[2024-09-22] MEDS: MECLIZINE HCL 25 MG TABLET (FP) PO SCH (09:53)
[2024-09-22] MEDS: D5-1/2NS+10 MEQ KCL - 10 MEQ/1,000 ML INFUS.BAG IV SCH (10:03)
[2024-09-22 16:01] VITALS: BP 125/87; PULSE 78; TEMP 97.8
== END 2024-09-22 15:53 | DRG 641 ==
LOC: JER 13:51 → OBSVTOIN 18:41 → JERBED 18:41 → J4W 09-18 15:50
PROVIDERS: ADMIT Internal Medicine; ATTEND Internal Medicine
DX: E86.0 Dehydration (principal); I24.89 Other forms of acute ischemic heart disease; I50.30 Unspecified diastolic (congestive) heart failure; I47.10 Supraventricular tachycardia, unspecified; I25.10 Atherosclerotic heart disease of native coronary artery without angina pectoris; I10 Essential (primary) hypertension; Z79.01 Long term (current) use of anticoagulants; N40.0 Benign prostatic hyperplasia without lower urinary tract symptoms; D64.9 Anemia, unspecified; Z21 Asymptomatic human immunodeficiency virus [HIV] infection status; I95.1 Orthostatic hypotension; I11.0 Hypertensive heart disease with heart failure; D50.9 Iron deficiency anemia, unspecified; I48.0 Paroxysmal atrial fibrillation
CPT/HCPCS: 0241U-QW; 36415; 70450-TC; 71045-TC-FY; 74174-TC; 80048; 80053; 80061; 81003; 82272; 82550; 82553; 82728; 82962; 83540; 83550; 83605; 83690; 83735; 83880; 84100; 84443; 84484; 85025; 85610; 85730; 86850; 86900; 86901; 87086; 93005; 93010; 93306-TC; 97116-GP; 97162-GP; 99285-25; J0131; J1756